=== PATIENT | female | born 2000 | race Two or more races ===

== ENCOUNTER 2024-05-29 11:35 | Emergency (ER) | payer MEDICAID, OTHER ==
[~2024-05-29] VITALS: Ht 162.6 cm; Wt 63.2 kg
[2024-05-29] MEDS ORDERED: MORPHINE SULFATE 4 MG/ML SYR/VIAL IV ONE (12:00)
[2024-05-29 12:15] LABS: Basophils # (auto) 0 10 ^3/uL (0-0.2); Basophils % (auto) 0.3 % (0.0-2.0); Eosinophils # (auto) 0.1 10 ^3/uL (0-0.8); Eosinophils % (auto) 1.4 % (0.0-7.0); Hematocrit 38.2 % (36.0-46.0); Lymphocytes # (auto) 1.6 10 ^3/uL (0.4-5.4); Mean Corpuscular Hemoglobin 30.1 pg (28.0-32.0); Mean Corpuscular Volume 88.5 fL (80.0-100.0); Monocytes # (auto) 0.4 10 ^3/uL (0-1.3); Monocytes % (auto) 7.2 % (0.0-12.0); Neutrophils # (auto) 3.8 10 ^3/uL (1.6-8.6); Neutrophils % (auto) 64.1 % (37.0-80.0); Nucleated Red Blood Cells % 0.2 %; Platelet Count (auto) 229 10^3/uL (140-450); Red Blood Cells 4.32 10^6/uL (4.0-5.20); Red Cell Distribution Width 13.5 % (11.8-14.3); White Blood Cell 5.9 10^3/uL (4.4-10.8)
[2024-05-29 12:30] LABS: Chloride 107 mmol/L (98-107); Potassium 3.6 mmol/L (3.5-5.1); Sodium 139 mmol/L (136-145)
[2024-05-29 12:35] LABS: Calcium 10.2 mg/dL (8.7-10.4)
[2024-05-29 12:40] LABS: Alkaline Phosphatase 96 U/L (46-116); BUN/Creatinine Ratio 10.8 (10.0-20.0); Blood Urea Nitrogen 7 mg/dL (9-23); Glucose 98 mg/dL (74-106); Lipase 36 U/L (12-53)
[2024-05-29 12:42] LABS: Alanine Aminotransferase 12 U/L (7-40); Aspartate Aminotransferase 11 U/L (13-40); Bilirubin, Total 0.5 mg/dL (0.2-1.0); Total Protein 7.6 g/dL (5.7-8.2)
[2024-05-29] MEDS ORDERED: ZOFR4T PO (12:50)
[2024-05-29] MEDS ORDERED: PANT40TA2 PO (12:50)
[2024-05-29 12:54] VITALS: BP 136/97; PULSE 100; RESP 18; TEMP 98.1; O2SAT 98
[2024-05-29] MEDS: SODIUM CHLORIDE 0.9% 1,000 ML IVB ONE (13:00)
[2024-05-29] MEDS: PANTOPRAZOLE 40 MG/10 ML VIAL INJ IV ONE (13:03)
[2024-05-29] MEDS: KETOROLAC TROMETH 30 MG/ML 1ML VIAL IV ONE (13:03)
[2024-05-29] MEDS: ONDANSETRON HCL 4 MG/2 ML VIAL IV ONE (13:03)
[2024-05-29 13:41] LABS: Anion Gap 5 (5-15); Carbon Dioxide 27 mmol/L (20-31)
== END 2024-05-29 13:36 | disposition home or self-care (01) ==
LOC: ER 11:35
DX: K29.70 Gastritis, unspecified, without bleeding (principal)
CPT/HCPCS: 36415; 76705; 80053; 83690; 85025; 96374; 96375; 99285; J1885; J2405; J2470; J7030